=== PATIENT | female | born 1945 | race Two or more races ===

== ENCOUNTER → 2017-05-10 | Outpatient (CLI) | payer OTHER | LOC: CIMAGING 05-03 12:50 | PROVIDERS: ATTEND Family Medicine | DX: N60.01 Solitary cyst of right breast (principal); N64.4 Mastodynia | CPT/HCPCS: 76641-PO ==

== ENCOUNTER 2018-03-27 14:49 | Emergency (ER) | payer OTHER ==
[2018-03-27] MEDS ORDERED: IOPAMIDOL (ISOVUE-370) 150 ML BTL IV ONE ×2 (15:17→15:20)
[2018-03-27] MEDS ORDERED: METOCLOPRAMIDE 10 MG/2 ML VIAL IVP ONE (15:20)
[2018-03-27] MEDS ORDERED: NS 1,000 ML IV ONE (15:20)
--- NOTE | 2018-03-27 15:57 | EDPHY ---
H & P Time Seen by Provider: 03/27/18 15:07 HPI/ROS: CHIEF COMPLAINT: Abdominal pain, nausea vomiting x4 weeks History by patient HISTORY OF PRESENT ILLNESS: 73-year-old woman with history of diabetes and hypertension and status post cholecystectomy 17 years ago is referred by primary care physician because of ongoing abdominal pain, nausea and vomiting. Patient states that over the past 4 weeks she gets intermittent episodes of severe abdominal pain which is periumbilical and predominantly right-sided, as well as nausea. These episodes occur daily and are sometimes related to eating but also can occur at any time. Patient states she does not vomit, but swallows it. She says she has multiple episodes of loose watery stools a day and that she did notice some bright red blood in them a few days ago. She says she is unable to eat and drink because it seems to make her symptoms worse. She says she has lost about 10 lb over the past 4 weeks. She denies any fevers but says a few days ago she felt "hot". She has had some dysuria but denies frequency or urgency. She denies any chest pain or shortness of breath. Patient is on chronic Percocet but denies changing the doses or amount that she has been taking a running out of this medicine recently. Patient's family notes that "she likes her Percocet" and express concerns about the patient not taking it appropriately. Patient's daughter states that she lives with her mother and her mother's been eating and drinking without any difficulty. She believes the patient's symptoms are likely due to opiate withdrawal from her mother not taking her Percocet as prescribed. She denies her mother trying to get pills from other physicians other than her primary care physician, but is very concerned about her using them inappropriately. REVIEW OF SYSTEMS: As in HPI, and all other systems reviewed and are negative Source: Patient, Family - Physical Exam Exam: General Appearance: Alert, pleasant, cooperative, nontoxic. Eyes: Pupils equal and round, extraocular movements intact, no pallor or injection. Mouth: Mucous membranes moist. Pharynx clear Respiratory: Normal, effort, lungs are clear to auscultation. No wheezes, rales or rhonchi. Cardiovascular: Regular rate and rhythm. S1, S2, no murmurs, gallops or rubs appreciated Gastrointestinal: bowel sounds present but decreased, Abdomen is soft and mildly tender in the right upper and lower quadrant, no rebound, guarding or masses Back: No CVA tenderness, no bony tenderness Neurological: Awake, alert and oriented x 3, no pronator drift, normal gait, no pronator drift Skin: Warm and dry, no rashes. Musculoskeletal: No deformities or tenderness. Extremities: full range of motion, no edema Psychiatric: Patient has normal affect, there is no agitation. Constitutional: Initial Vital Signs O2 Sat (%) 96 03/27/18 15:10 O2 Delivery Mode Room Air O2 (L/minute) 2 Allergies/Adverse Reactions: No Known Allergies Allergy (Verified 03/27/18 15:01) Home Medications: Medication Instructions Recorded Lisinopril 10/19/09 Percocet 10/19/09 Simvastatin 10/19/09 Amlodipine Besylate 03/27/18 Atorvastatin Calcium 03/27/18 Atrovent Hfa (*) 03/27/18 Fioricet (*) 03/27/18 Gabapentin 03/27/18 Lexapro 03/27/18 Metformin HCl 03/27/18 Metoprolol Tartrate 03/27/18 Oxybutynin 03/27/18 Potassium Acetate 03/27/18 Proair Hfa 03/27/18 Seroquel 03/27/18 Zantac 03/27/18 morphINE IR 15 mg (*) 03/27/18 Medical Decision Making - Diagnostics EKG Interpretation: Normal sinus rhythm at a rate of 77 with normal axis, flattened T-waves in the anterior lateral leads, which are new from prior EKG of 2009 Imaging Results: Imaging Impressions Abdomen CT 03/27/18 15:08 Impression: 1. Mild diverticulosis of the descending and sigmoid colon. No acute diverticulitis. 2. Normal appendix. No bowel obstruction or localized intra-abdominal inflammatory process. 3. Severe bilateral neural foraminal narrowing at L4-L5, worse on the left due to degenerative disk and facet arthropathy. No fracture. Findings discussed with Emergency Department physician, Dr. Autumn Tse on March 27, 2018 at 1601 hours. Imaging: Discussed imaging studies w/ ceramic coater Radiologist ED Course/Re-evaluation: 73-year-old woman referred by her primary care physician for with nausea, vomiting, abdominal pain and diarrhea x4 weeks. Here the patient's vital signs are stable and within normal limits. She is afebrile. Urinalysis shows no evidence of infection or ketones, there is trace glucose. Chemistries are within normal limits except for slightly elevated glucose. CBC shows slightly elevated white blood cell count with lymphocytes predominant and a normal hemoglobin hematocrit. Patient had a CT of the abdomen and pelvis as I was concerned about diverticulitis or other intra-abdominal pathology given her age. This was read as nothing acute by the radiologist. Patient's ECG did show flattened T-waves in the anterior lateral leads which are new from an EKG 2009, however the patient has no chest pain shortness of breath and her constellation of symptoms is inconsistent with cardiac cause. Patient's family was concerned about her opioid use and her symptoms are consistent with opioid withdrawal. Given her negative workup here in the ER I suspect this may be the cause of her symptoms. I did discuss this with Dr. Esquivel her primary care physician who will see her in follow-up next week to further address this. I did mention this to the patient as my concern for the cause of her symptoms. - Data Points Laboratory Results: 03/27/18 15:23 POC Sodium 142 mEq/L mEq/L (135-145) POC Potassium 3.3 mEq/L mEq/L (3.3-5.0) POC Chloride 108.0 mEq/L mEq/L (97-110) POC Total CO2 27 mEq/L mEq/L (22-31) POC BUN 18 mg/dL mg/dL (7-23) POC Creatinine 1.0 mg/dL mg/dL (0.6-1.0) POC Glucose 187 mg/dL H mg/dL (70-100) POC Calcium 10.2 mg/dL mg/dL (8.5-10.4) POC Total Bilirubin 0.8 mg/dL mg/dL (0.1-1.4) POC AST 23 IU/L IU/L (14-46) POC ALT 19 IU/L IU/L (9-52) POC Alk Phosphatase 105 IU/L IU/L (38-126) POC Total Protein 7.2 g/dL g/dL (6.3-8.2) POC Albumin 3.9 g/dL g/dL (3.5-5.0) Medications Given: Discontinued Medications Sodium Chloride (Ns) 1,000 mls @ 0 mls/hr IV EDNOW ONE; Wide Open PRN Reason: Protocol Stop: 03/27/18 15:21 Last Admin: 03/27/18 15:48 Dose: 1,000 mls Metoclopramide HCl (Reglan Injection) 10 mg IVP EDNOW ONE Stop: 03/27/18 15:21 Last Admin: 03/27/18 15:54 Dose: 10 mg Point of Care Test Results: CBC CBC Collection Date 03/27/18 CBC Collection Time 15:15 WBC 10.15 RBC 5.34 HGB 16.2 HCT 47.6 PLT 259 Neut # 6.44 Neut 63.5 LYMPH # 3.07 LYMPH 30.2 MCV 89.1 Chemistry 03/27/18 15:23 POC Sodium 142 mEq/L mEq/L (135-145) POC Potassium 3.3 mEq/L mEq/L (3.3-5.0) POC Chloride 108.0 mEq/L mEq/L (97-110) POC Total CO2 27 mEq/L mEq/L (22-31) POC BUN 18 mg/dL mg/dL (7-23) POC Creatinine 1.0 mg/dL mg/dL (0.6-1.0) POC Glucose 187 mg/dL H mg/dL (70-100) POC Calcium 10.2 mg/dL mg/dL (8.5-10.4) POC Total Bilirubin 0.8 mg/dL mg/dL (0.1-1.4) POC AST 23 IU/L IU/L (14-46) POC ALT 19 IU/L IU/L (9-52) POC Alk Phosphatase 105 IU/L IU/L (38-126) POC Total Protein 7.2 g/dL g/dL (6.3-8.2) POC Albumin 3.9 g/dL g/dL (3.5-5.0) Urine Dip Collection Date 03/27/18 Collection Time 15:35 Specific [place] (1.002-1.030) 1.025 PH (5.0-7.5) 5.5 Leukocytes (Negative) Negative Nitrites (Negative) Negative Protein (Negative) Trace Glucose (Negative) Trace Ketones (Negative) Negative Urobilnogen (0.2-1.0 EU) 0.2 Bilirubin (Negative) Negative Blood (Negative) Trace Departure - Departure Disposition: Home, Routine, Self-Care Clinical Impression: Vomiting and diarrhea, Opiate withdrawal Abdominal pain Qualifiers: Abdominal location: periumbilical Qualified Code(s): R10.33 - Periumbilical pain Condition: Good Instructions: Opioid Withdrawal (ED) Additional Instructions: You were seen by Dr. Autumn Tse today. Your blood work and CT scan were normal today. If you do not take your opioid pain medicine as prescribed and you run out early it may cause withdrawal symptoms of nausea, vomiting and diarrhea. Please follow-up with Dr. Esquivel next Saturday or Saturday. I discussed your results today with her. If you have trouble getting an appointment, please ask them to speak with her about this, as she said she will fit you in. Return for any worsening or new concerns. Referrals: Flavia Esquivel MD [Primary Care Provider] - As per Instructions
[2018-03-27 16:58] VITALS: BP 145/89
--- NOTE | 2018-03-28 19:56 | CPEKG ---
Test Reason : OPEN Blood Pressure : / mmHG Vent. Rate : 077 BPM Atrial Rate : 077 BPM P-R Int : 143 ms QRS Dur : 088 ms QT Int : 396 ms P-R-T Axes : 031 -25 -03 degrees QTc Int : 449 ms Sinus rhythm Probable left atrial enlargement Left ventricular hypertrophy Probable anterior infarct, age indeterminate Confirmed by Francisco Javier Maurer ([id number] on 03/28/2018 7:55:49 PM Referred By: PHYSICIAN ED Confirmed By:Francisco Javier Maurer
== END 2018-03-27 16:45 | disposition home or self-care (01) ==
LOC: CED 14:49
DX: F11.23 Opioid dependence with withdrawal (principal); R11.10 Vomiting, unspecified; R19.7 Diarrhea, unspecified; K57.30 Diverticulosis of large intestine without perforation or abscess without bleeding; E86.9 Volume depletion, unspecified; M48.061 Spinal stenosis, lumbar region without neurogenic claudication; M51.36 Other intervertebral disc degeneration, lumbar region; M46.96 Unspecified inflammatory spondylopathy, lumbar region
CPT/HCPCS: 74177; 93005; 96361; 96374; 99285; J2765; Q9967; 80053-ER